=== PATIENT | female | born 1950 | race Caucasian/White ===

== ENCOUNTER 2017-02-22 07:00 | Day surgery (SDC) | payer MEDICARE, MEDICAID ==
[2013-06-06 10:31] VITALS: BMI 36.7
[2017-02-22] MEDS ORDERED: Propofol 10 mg/ml Inj (20 ML) ONE (09:44)
[2017-02-22 10:20] VITALS: TEMP 97.3
[2017-02-22 11:05] VITALS: BP 110/59; PULSE 71; RESP 13; O2SAT 98
== END 2017-02-22 11:04 | disposition home or self-care (01) ==
LOC: C.ENDO 07:00
PROVIDERS: ATTEND Internal Medicine Gastroenterology
DX: K29.50 Unspecified chronic gastritis without bleeding (principal); R10.13 Epigastric pain; I10 Essential (primary) hypertension; J44.9 Chronic obstructive pulmonary disease, unspecified; E11.9 Type 2 diabetes mellitus without complications; M19.90 Unspecified osteoarthritis, unspecified site
CPT/HCPCS: 43239; 82948; 88305; J2704; J3010

== ENCOUNTER 2017-11-30 06:04 | Day surgery (SDC) | payer MEDICARE ==
[2013-06-06 10:31] VITALS: BMI 36.7
[2017-11-30] MEDS ORDERED: Propofol 10 mg/ml Inj (20 ML) ONE ×2 (08:01→08:37)
[2017-11-30] MEDS ORDERED: Lactated Ringer's 1,000 ML IV ONE ×2 (08:06)
[2017-11-30] MEDS ORDERED: Albuterol HFA 90 mcg/actuation (8 g) ONE (08:16)
[2017-11-30 10:22] VITALS: BP 100/58; PULSE 77; RESP 14; TEMP 97; O2SAT 98
== END 2017-11-30 10:05 | disposition home or self-care (01) ==
LOC: C.ENDO 06:04
PROVIDERS: ATTEND Internal Medicine Gastroenterology
DX: K31.7 Polyp of stomach and duodenum (principal); K57.90 Diverticulosis of intestine, part unspecified, without perforation or abscess without bleeding; K64.8 Other hemorrhoids; K21.0 Gastro-esophageal reflux disease with esophagitis; K29.60 Other gastritis without bleeding; K25.9 Gastric ulcer, unspecified as acute or chronic, without hemorrhage or perforation; R13.10 Dysphagia, unspecified; K20.9 Esophagitis, unspecified
CPT/HCPCS: 43239; 45378; 82948; 88305; 88312; 88342; J2001; J2704; J7120